=== PATIENT | male | born 1960 | race Caucasian/White ===

== ENCOUNTER → 2020-12-24 07:48 | Outpatient (BNVA) | payer OTHER, SELFPAY | PROVIDERS: PCP Internal Medicine; Visit Provider Physician Assistant ==

== ENCOUNTER 2021-02-14 07:26 | Outpatient (REF) | payer OTHER, SELFPAY | END 2021-02-14 07:27 | disposition home or self-care (01) | LOC: HO.HOSX 07:26 | PROVIDERS: Visit Provider Physician Assistant | DX: Z13.89 Encounter for screening for other disorder (principal) ==

== ENCOUNTER 2021-03-08 14:00 | Outpatient (RCR) | payer OTHER, SELFPAY ==
--- NOTE | 2021-01-18 14:59 | MHC.PT.EP ---
[facility] [place] Office [place] Office [place] Office [address] Araceli Zaidi [address] [phone] F: [phone] F: [phone] F: [phone] F: [phone] Physical Therapy Plan of Care Date of Evaluation: Date of Surgery: NA Diagnosis: BICIPITAL TENDONITIS, OA R SHLDER, OA R AC JT Assessment: Pt IS 60 YO M REFERRED TO PT FROM ORTHO (DANNIE BUTTERFIELD) WITH R SHLDER AC JT ARTHRITIS AND R BICIPITAL TENDONITIS. PRESENTS TO PT WITH C/O PAIN R SHLDER (RELIEF WITH SHLDER ELEV) AND SOME PARESTHESIA AT TIMES R UE. Pt WITH SLIGHT LIMITATION TO END RANGE FLEX IN SUP, GOOD STRENGTH PER MMT R UPPER ARM/SHLDER, SLIGHTLY POSITIVE MODIFIED IMPINGEMENT R. SHOULD BENEFIT FROM PT TO ADDRESS THESE ISSUES. TO BE SEEN 1X/WK X 3-4 WEEKS FOR HOME PROG AND ED RE USE KT AND POSTURE TO SUPPORT R SHLDER. Frequency and Duration: The patient will be seen 1X/WK X 4 WKS Short Term Goals: 1. CENTRALIZE SXS 2. IMPROVED POSTURE AWARENESS Penitentiary Goals: 1. I HEP WITH DC EX PLAN 2. R SHLDER ROM FLEX TO 170 IN SUP 3. DECREASED R SHLDER PAIN AT LEAST 50% WITH ADLS Treatment Plan: Modalities to reduce pain, spasms and effusion. Manual therapy to restore motion and function. Therapeutic exercise to improve strength and flexibility. Neuromuscular re-education for posture and balance. Therapeutic activities to return to functional activities of daily living. Electronically signed by: MORE PEREZ PT Please sign and return to therapist. Thank you for your referral.
--- NOTE | 2021-03-30 14:02 | MHC.PT.DC ---
[facility] [place] Office [place] Office [place] Office [address] Araceli Zaidi [address] [phone] F: [phone] F: [phone] F: [phone] F: [phone] Physical Therapy Discharge Report Diagnosis: BICIPITAL TENDONITIS, OA R SHLDER, OA R AC JT Date of Surgery: NA Date of Evaluation: 01/18/21 Date of Discharge: 03/30/21 Treatments to Date: 5 Cancellations to Date: No Shows to Date: Discharge Status: Independent with HEP Patient Elected to Stop Recommend MD Follow-up Discharge Summary: Pt LAST SEEN IN PT ON 03/08/21 BY CORRIE HUANG PT,DPT. PER THE ASSESSMENT FROM THAT NOTE '03/08/21: Pt has a follow up with [facility] on 03/25/21 at 3:45 pm. Pt's AROM has improved since start of care; he has beem implemented in a gentle stretching program I with'. SUBJECTIVELY AT MELISSA LAST VISIT Pt REPORTS NO SIGNIF CHANGE IN PAIN AND NEED TO RETURN TO MD HAD ORTHO APPT ON 03/25/21 WITH JOSE HUNT PA-C. PER THAT NOTE:'I feel as though there is a component of this that may be related to the cervical spine. Going to order an EMG/nerve conduction study to see where this is originating from. Would also like him to meet with pain management once this study is completed to discuss possible options. He is content with this plan and will see me back p.r.n..' HAS NO FURTHER APPTS SCHEDULED IN PT. WILL DC AT THIS TIME Electronically signed by: MORE PEREZ PT Please sign and return to therapist. Thank you for your referral.
== END 2021-03-30 14:04 | disposition home or self-care (01) ==
LOC: HO.PTWFD 14:00
PROVIDERS: Visit Provider Physician Assistant
DX: M75.21 Bicipital tendinitis, right shoulder (principal); M19.011 Primary osteoarthritis, right shoulder
CPT/HCPCS: 97110; 97140; 97161; 97535

== ENCOUNTER 2021-03-25 07:31 | Outpatient (REF) | payer OTHER, SELFPAY ==
--- NOTE | ~2021-03-25 | XR_ITS ---
EXAMINATION: XR SHOULDER, RIGHT CLINICAL INFORMATION: Right shoulder pain COMPARISON: None TECHNIQUE: Three views of the right shoulder. FINDINGS: Alignment is normal at the acromioclavicular and glenohumeral joints. The acromioclavicular joint is unremarkable. There is a slightly curved, type 2 configuration of the acromion process. No hook-shaped acromion or acromiohumeral distance narrowing. No calcium deposition within rotator cuff tendons. The glenohumeral joint space is preserved. No glenohumeral arthritis, fracture or subluxation. The humeral head is well positioned over the intact glenoid. The visualized right lung is normal. XR/XR shoulder RT min 2V IMPRESSION: Normal radiographs of the right shoulder. No evidence of calcific tendinopathy.
== END 2021-03-25 07:32 | disposition home or self-care (01) ==
LOC: HO.HOSX 07:31
PROVIDERS: Visit Provider Physician Assistant
DX: M25.511 Pain in right shoulder (principal); R20.0 Anesthesia of skin; R20.2 Paresthesia of skin
CPT/HCPCS: 73030

== ENCOUNTER 2021-04-15 10:39 | Outpatient (REF) | payer OTHER, SELFPAY ==
--- NOTE | 2021-04-15 10:45 | EMG_ITS ---
HISTORY OF PRESENT ILLNESS: This is a 60-year-old man with 5-6 month history of significant loss of strength in the right upper extremity. History of hypertension and HIV with negligible counts. MEDICATIONS: He is on HIV medications, olmesartan, and hydrochlorothiazide. PHYSICAL EXAMINATION: On examination, he has significant weakness in the right deltoid, biceps and supra and infraspinatus with normal triceps and distal strength. IMPRESSION: Cervical radiculopathy, C5. Nerve conduction EMG study: Nerve conduction study of the right upper extremity is consistent with mild carpal tunnel syndrome on the right. EMG of the right C5-T1 innervated muscles including cervical paraspinal muscles is consistent with subacute to chronic, moderately severe right C5 radiculopathy and mild chronic right C6 radiculopathy. MD VIJAY Connors/CATIA / [id number]
== END 2021-04-15 10:40 | disposition home or self-care (01) ==
LOC: HO.NEURO 10:39
PROVIDERS: Visit Provider Physician Assistant
DX: R20.0 Anesthesia of skin (principal); R20.2 Paresthesia of skin
CPT/HCPCS: 95886; 95910

== ENCOUNTER → 2021-04-22 10:35 | Outpatient (BNVA) | payer OTHER, SELFPAY | PROVIDERS: PCP Internal Medicine; Visit Provider Internal Medicine ==

== ENCOUNTER → 2021-05-23 11:05 | Outpatient (BNVA) | payer OTHER, SELFPAY | PROVIDERS: PCP Family Medicine; Visit Provider Internal Medicine ==

== ENCOUNTER 2021-06-03 08:00 | Outpatient (RCR) | payer OTHER, SELFPAY | END 2021-11-25 13:32 | disposition home or self-care (01) | LOC: HO.PTWFD 08:00 | PROVIDERS: PCP Family Medicine; Visit Provider Internal Medicine | DX: M54.12 Radiculopathy, cervical region (principal) | CPT/HCPCS: 97012; 97110; 97150; 97161; 97535 ==

== ENCOUNTER → 2021-07-18 12:58 | Outpatient (BNVA) | payer OTHER, SELFPAY | PROVIDERS: PCP Family Medicine; Visit Provider Internal Medicine ==

== ENCOUNTER 2021-07-19 07:18 | Outpatient (REF) | payer OTHER, SELFPAY | END 2021-07-19 07:19 | disposition home or self-care (01) | LOC: HO.MRI 07:18 | PROVIDERS: Visit Provider Internal Medicine | DX: Z13.89 Encounter for screening for other disorder (principal) ==

== ENCOUNTER 2021-10-06 08:39 | Outpatient (REF) | payer OTHER, SELFPAY ==
--- NOTE | 2021-10-06 08:44 | EMG_ITS ---
Left median, ulnar, motor, and sensory studies were performed. Left radial and sensory study was performed. Paraspinal muscles were tested with a needle. IMPRESSION: 1. [id number] left median neuropathy across carpal tunnel. 2. Early left ulnar neuropathy across cubital tunnel. MD ARLEN Mercedes/CATIA / [id number]
== END 2021-10-06 08:40 | disposition home or self-care (01) ==
LOC: HO.NEURO 08:39
PROVIDERS: Visit Provider Internal Medicine
DX: G56.03 Carpal tunnel syndrome, bilateral upper limbs (principal)
CPT/HCPCS: 95886; 95909

== ENCOUNTER 2022-06-21 09:42 | Outpatient (REF) | payer OTHER, SELFPAY | END 2022-06-21 09:43 | disposition home or self-care (01) | LOC: HO.HOSX 09:42 | PROVIDERS: Visit Provider Orthopaedic Surgery | DX: Z13.89 Encounter for screening for other disorder (principal) ==

== ENCOUNTER 2022-06-22 12:54 | Outpatient (REF) | payer OTHER, SELFPAY ==
--- NOTE | ~2022-06-22 | XR_ITS ---
EXAMINATION: XR KNEE, LEFT XR KNEE AP STANDING CLINICAL INFORMATION: Pain. COMPARISON: Radiographs dated 01/28/2018. TECHNIQUE: Lateral and axial views of the left knee were obtained. AP bilateral standing view of the knees was obtained. FINDINGS: Bony alignment and mineralization are normal. The lateral and medial joint space compartments of the bilateral knees are well-maintained. There is minimal peripheral osteophyte formation of the bilateral medial joint space compartments. No fracture or dislocation is seen. There is no varus or valgus configuration. There is a small to moderate left knee effusion. A 9 mm loose body is suspected within the left suprapatellar space. No foreign body is seen. XR/XR knee LT 2V IMPRESSION: 1. There is minimal osteoarthritic change of the medial joint space compartments of the bilateral knees. No significant varus or valgus configuration is seen bilaterally. 2. A small to moderate left knee joint effusion is seen. 3. A 9 mm loose body is suspected within the left suprapatellar space.
--- NOTE | ~2022-06-22 | XR_ITS ---
EXAMINATION: XR KNEE, LEFT XR KNEE AP STANDING CLINICAL INFORMATION: Pain. COMPARISON: Radiographs dated 01/28/2018. TECHNIQUE: Lateral and axial views of the left knee were obtained. AP bilateral standing view of the knees was obtained. FINDINGS: Bony alignment and mineralization are normal. The lateral and medial joint space compartments of the bilateral knees are well-maintained. There is minimal peripheral osteophyte formation of the bilateral medial joint space compartments. No fracture or dislocation is seen. There is no varus or valgus configuration. There is a small to moderate left knee effusion. A 9 mm loose body is suspected within the left suprapatellar space. No foreign body is seen. XR/XR knee standing BI IMPRESSION: 1. There is minimal osteoarthritic change of the medial joint space compartments of the bilateral knees. No significant varus or valgus configuration is seen bilaterally. 2. A small to moderate left knee joint effusion is seen. 3. A 9 mm loose body is suspected within the left suprapatellar space.
== END 2022-06-22 12:55 | disposition home or self-care (01) ==
LOC: HO.HOSX 12:54
PROVIDERS: Visit Provider Orthopaedic Surgery
DX: M23.92 Unspecified internal derangement of left knee (principal)
CPT/HCPCS: 73560; 73565

== ENCOUNTER 2022-07-20 18:41 | Outpatient (REF) | payer OTHER, SELFPAY ==
--- NOTE | ~2022-07-20 | MR_ITS ---
EXAMINATION: MR KNEE WITHOUT CONTRAST, LEFT CLINICAL INFORMATION: Left knee pain. COMPARISON: Radiographs 06/22/2022 TECHNIQUE: MRI of the knee without contrast was performed using routine sequences on a high-field scanner. FINDINGS: MENISCI: Medial Meniscus: Complex tearing of the posterior horn with irregular tearing along the superior articular surface at and adjacent to the meniscal root, extending along the inner margin of the posterior horn with an oblique undersurface tear at the junction with the meniscal body. A portion of the meniscal undersurface is displaced into the meniscotibial recess. Lateral Meniscus: Ill-defined inner margin and horizontal tearing throughout the posterior horn, body, and anterior horn. LIGAMENTS: Cruciate: Mucoid degeneration/interstitial partial tear of the distal PCL. The ACL is intact. Reactive marrow changes at the tibial insertions. Collateral: Intact EXTENSOR MECHANISM: Intact ARTICULAR CARTILAGE/BONE: Patellofemoral Compartment: Partial-thickness cartilage loss and surface irregularity of the central trochlea. Medial Compartment: Peripheral cartilage thinning and small marginal osteophytes. Lateral Compartment: Cartilage thinning and surface irregularity of the tibia posteriorly. JOINT FLUID AND BURSAE: Small joint effusion with mild synovitis. There is a 10 mm ossified body in the posterolateral aspect of the joint adjacent to the popliteus tendon. MR/MR knee LT wo con IMPRESSION: 1. Complex tearing of the posterior horn of the medial meniscus as described. 2. Ill-defined inner margin and horizontal tearing of the lateral meniscus as described. 3. Mucoid degeneration/interstitial partial tear of the distal PCL. 4. Mild tricompartmental osteoarthritis with joint effusion and loose body posterolaterally.
== END 2022-07-20 18:42 | disposition home or self-care (01) ==
LOC: HO.MRI 18:41
PROVIDERS: PCP Internal Medicine; Visit Provider Orthopaedic Surgery
DX: M23.92 Unspecified internal derangement of left knee (principal)
CPT/HCPCS: 73721

== ENCOUNTER → 2022-08-03 09:15 | Outpatient (BNVA) | payer OTHER, SELFPAY | PROVIDERS: PCP Internal Medicine; Visit Provider Orthopaedic Surgery | DX: Z13.89 Encounter for screening for other disorder (principal) ==

== ENCOUNTER → 2022-09-04 07:58 | Outpatient (BNVA) | payer OTHER, SELFPAY | PROVIDERS: PCP Internal Medicine; Visit Provider Physician Assistant | DX: Z13.89 Encounter for screening for other disorder (principal) ==

== ENCOUNTER 2022-09-13 06:02 | Day surgery (SDC) | payer OTHER, SELFPAY ==
[2022-09-08 12:41] VITALS: BMI 44.3
--- NOTE | 2022-09-12 10:41 | P.CONAN_ITS ---
Documented by User: Tova Kaminski NP 09/12/22 13:37 HPI - Anesthesia Eval Consult details Narrative: 62yo M for Left Knee Arthroscopy Medically cleared PMFSH Active Problems Active Problems: All Active Problems (Updated 09/08/22 @ 12:31 by Janay Rayo RN) Biceps tendonitis on right (Acute) Osteoarthritis of right acromioclavicular joint (Acute) Cervical radiculopathy (Acute) Carpal tunnel syndrome, bilateral (Acute) Tear of meniscus of left knee (Acute) Knee locking (Acute) Past Medical History Medical History (Updated 09/08/22 @ 12:31 by Janay Rayo RN) Bursitis of right shoulder GERD (gastroesophageal reflux disease) HIV positive, asymptomatic HTN (hypertension) Knee locking Rupture of left triceps tendon Tear of meniscus of left knee Family History Family History Mother No problems noted. Father No problems noted. 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 Meds Allergies Allergy/AdvReac Type Severity Reaction Status Date / Time levofloxacin [From LEVAQUIN] Allergy Unknown HIVES Verified 09/13/22 06:10 polio vaccine Allergy Severe polio Uncoded 09/13/22 06:10 Home Medications Medication Instructions Recorded Confirmed Last Taken Type hydrochlorothiazide 12.5 mg capsule 12.5 mg PO DAILY 12/24/20 09/08/22 09/12/22 History omeprazole 10 mg capsule,delayed 10 mg PO DAILY 12/24/20 09/13/22 09/13/22 04:30 History release darunavir 800 mg-cobicistat 150 mg 1 tab PO DAILY 04/22/21 09/08/22 Unknown History tablet (Prezcobix) emtricitabine 200 mg-tenofovir 1 tab PO DAILY 04/22/21 09/08/22 Unknown History disoproxil fumarate 300 mg tablet olmesartan 20 mg tablet 20 mg PO DAILY 04/22/21 09/08/22 09/12/22 History loratadine 10 mg tablet (Allergy 10 mg PO DAILY 07/18/21 09/08/22 Unknown History Relief (loratadine)) Exam Exam Date and Time: September 12, 2022 1041 Height,Weight and Vital Signs: Height 5 ft 11 in Weight 144.242 kg Pertinent Lab Results Pertinent Lab Results: CBC, BMP, PT/INR, HCV 08/2022 WNL (at outside facility) Narrative Narrative: EKG 08/2022 (at PCP) SR @ 57 First degree AV block Assessment and Plan Assessment Anesthesia Assessment: Chart Reviewed Documented by User: Thomas Becker MD 09/14/22 16:52 [facility] Past Medical History Medical History (Updated 09/08/22 @ 12:31 by Janay Rayo RN) Bursitis of right shoulder GERD (gastroesophageal reflux disease) HIV positive, asymptomatic HTN (hypertension) Knee locking Rupture of left triceps tendon Tear of meniscus of left knee Functional capacity: independent ambulation Family History Family History Mother No problems noted. Father No problems noted. 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 Meds Allergies Allergy/AdvReac Type Severity Reaction Status Date / Time levofloxacin [From LEVAQUIN] Allergy Unknown HIVES Verified 09/13/22 06:10 polio vaccine Allergy Severe polio Uncoded 09/13/22 06:10 Home Medications Medication Instructions Recorded Confirmed Last Taken Type hydrochlorothiazide 12.5 mg capsule 12.5 mg PO DAILY 12/24/20 09/08/22 09/12/22 History omeprazole 10 mg capsule,delayed 10 mg PO DAILY 12/24/20 09/13/22 09/13/22 04:30 History release darunavir 800 mg-cobicistat 150 mg 1 tab PO DAILY 04/22/21 09/08/22 Unknown History tablet (Prezcobix) emtricitabine 200 mg-tenofovir 1 tab PO DAILY 04/22/21 09/08/22 Unknown History disoproxil fumarate 300 mg tablet olmesartan 20 mg tablet 20 mg PO DAILY 04/22/21 09/08/22 09/12/22 History loratadine 10 mg tablet (Allergy 10 mg PO DAILY 07/18/21 09/08/22 Unknown History Relief (loratadine)) Exam Airway Mallampati Class: IV Denture: Upper Partial: Lower Loose/Missing/Broken Teeth: Yes Assessment and Plan Assessment Anesthesia Assessment: Anesthesia Plan Discussed Final Anesthetic Review Family History of Problems with Anesthesia: No History of Problems with Anesthesia: No NPO: Yes ASA Class: III Final Preanesthetic Review: Meds/Allgs Chart Reviewed, Consent Obtained/Reviewed and Anes Risks/Benef Reviewed Patient Risk: Intermediate Procedure Risk: Intermediate Anesthetic Plan Anesthetic Plan: GA and Agree w/ Assess. and Plan Disposition: Standard PACU
[2022-09-13] VITALS (7 sets, daily range): BP systolic 130–153; BP diastolic 62–91; PULSE 78–94; RESP 16–20; TEMP 36.2–36.6; O2SAT 96–97; BMI 44.5
[2022-09-13] MEDS: Lactated Ringers 1,000 ML 100 ML IVCONT (06:34)
--- NOTE | 2022-09-13 08:30 | PM.OP ---
Brief Operative Note Date of Service: 09/13/22 Pre-op diagnosis: Left knee medial meniscus tear Post-op diagnosis: other (1)left knee MMT 2) left knee LMT 3) medial plica 4) arthritis) Procedure: Partial LM, Partial MM, plica resection, chondroplasty Surgeon: Jani David MD Anesthesia: GETA and local Was an Projection Welding Machine Operator used for this Procedure?: No Estimated blood loss (mL): 2 Tourniquet time (min): 30 IV fluids (mL): 500 Pathology: none sent Condition: stable Disposition: PACU
--- NOTE | 2022-09-21 13:51 | W.PM.OPN ---
Operative Note Operative Note Date of Service: 09/13/22 Narrative: Date of Service: 09/13/22 Pre-op diagnosis: Left knee medial meniscus tear Post-op diagnosis: other (1)left knee MMT 2) left knee LMT 3) medial plica 4) arthritis) Procedure: Partial LM, Partial MM, plica resection, chondroplasty Surgeon: Jani David MD Anesthesia: GETA and local Was an Computer System Validation Specialist used for this Procedure?: No Estimated blood loss (mL): 2 Tourniquet time (min): 30 IV fluids (mL): 500 Pathology: none sent Condition: stable Disposition: PACU Procedure in detail: Patient was brought to the operating room placed supine on the arthroscopic table and prepped and draped in standard sterile fashion. A time-out was called to identify proper site proper procedure proper surgeon and IV antibiotics per weight were administered. I began by exsanguinating the limb and insufflating tourniquet to 300 mm Hg. Then made a standard anterolateral stab incision. knee was insufflated with water and 30 degree arthroscope was placed. There was grade 2 fibrillations of the patella and there were grade 2/3 fibrillations of the trochlea. There was a large medial plica which made descend alvarez into the medial compartment difficult. I descended into the medial compartment where I made my medial portal under direct visualization. There was obvious of complex tear of the body and posterior horn of the medial meniscus. The root was intact and there was grade2 changes with some scattered grade 3 changes throughout the medial compartment. I used a combination of biter shaver and cautery to remove unstable portions of the meniscus. Approximately 40% meniscal volume was removed. Once I was satisfied with this the ACL was examined and found to be intact and the lateral compartment was examined. There was a large unstable flap of lateral meniscus that was debrided with a combination of biter and shaver. Approximately 30% of the meniscal volume was removed. The root was intact. There were grade 1/2 changes of the lateral tibial plateau. I then returned to the anteromedial compartment where I resected the medial plica with a combination of shaver and cautery. I then took my final pictures and removed all instrumentation and closed the portals with skin glue. 25 mL of 2% Marcaine with epinephrine was injected into the joint and the surrounding soft tissues. Patient was then placed in sterile dressing extubated brought recovery room stable condition. There were no known complications.
== END 2022-09-13 10:00 | disposition home or self-care (01) ==
PROVIDERS: PCP Internal Medicine; Visit Provider Orthopaedic Surgery
PROC: (CPT 29870; principal; 2022-09-13 07:30)
DX: S83.232A Complex tear of medial meniscus, current injury, left knee, initial encounter (principal); S83.282A Other tear of lateral meniscus, current injury, left knee, initial encounter; M67.52 Plica syndrome, left knee; M17.12 Unilateral primary osteoarthritis, left knee; I10 Essential (primary) hypertension; Z21 Asymptomatic human immunodeficiency virus [HIV] infection status; Z79.899 Other long term (current) drug therapy; X58.XXXA Exposure to other specified factors, initial encounter; Y93.9 Activity, unspecified; Y92.9 Unspecified place or not applicable; Y99.9 Unspecified external cause status
CPT/HCPCS: 29880; J0171; J0690; J1100; J1170; J2250; J2405; J2795; J3010

== ENCOUNTER → 2022-09-18 08:37 | Outpatient (BNVA) | payer OTHER, SELFPAY | PROVIDERS: PCP Internal Medicine; Visit Provider Physician Assistant ==

== ENCOUNTER 2022-10-16 09:00 | Outpatient (RCR) | payer OTHER, SELFPAY ==
--- NOTE | 2022-09-18 16:05 | MHC.PT.EP ---
[facility] [place] Office [place] Office [place] Office [address] Araceli Zaidi [address] [phone] F: [phone] F: [phone] F: [phone] F: [phone] Physical Therapy Plan of Care Date of Evaluation: Date of Surgery: 09/13/22 Diagnosis: s/p LEFT knee partial lateral and medial meniscectomy, plica resection, and chondroplasty. Assessment: Patient is a 62 y.o. male who is referred to PT by Dr. Jani David MD with Dx of s/p LEFT partial meniscectomy due to meniscal tear. Patient impairments include pain, swelling, limited ROM, weakness, antalgic gait. Patient current functional limitations are bending, stair use, walking unlevel surfaces, high step into work truck. Patient will benefit from skilled PT to address aforementioned impairments and functional limitations to meet established goals. Frequency and Duration: The patient will be seen 2x/week for 6 weeks Short Term Goals: 3 weeks Patient demonstrates consistency and independence with HEP to self manage symptoms. Patient presents with reduced swelling in L knee 45cm to be able to perform more AROM exercises. Mcfp Goals: 6 weeks Patient presents with increased L knee flexion 120 degrees to be able to bend to low surfaces. Patient presents with increased L knee extension 0 degrees to be able to ambulate without AD. Patient presents with increased L knee quad stretch 4+/5 to be able to get on/off work truck. Treatment Plan: Modalities to reduce pain, spasms and effusion. Manual therapy to restore motion and function. Therapeutic exercise to improve strength and flexibility. Neuromuscular re-education for posture and balance. Therapeutic activities to return to functional activities of daily living. Electronically signed by: Sania Baer, PT, DPT Please sign and return to therapist. Thank you for your referral.
--- NOTE | 2022-11-22 14:47 | MHC.PT.DC ---
[facility] [place] Office [place] Office [place] Office [address] Araceli Zaidi 140 [facility] [phone] F: [phone] F: [phone] F: [phone] F: [phone] Physical Therapy Discharge Report Diagnosis: s/p LEFT knee partial lateral and medial meniscectomy, plica resection, and chondroplasty. Date of Surgery: 09/13/22 Date of Evaluation: 09/18/22 Date of Discharge: 11/22/22 Treatments to Date: 7 Cancellations to Date: No Shows to Date: 1 Discharge Status: Improved Function Independent with HEP Visit Non-compliance Discharge Summary: Patient ceased attending PT on his own accord on 10/16/22. He did well during his attendance of PT sessions, improving strength and ROM. He has a HEP. He is therefore discharged from PT. Electronically signed by: Sania Baer, PT, DPT Please sign and return to therapist. Thank you for your referral.
== END 2022-11-22 14:48 | disposition home or self-care (01) ==
LOC: HO.PT 09:00
PROVIDERS: PCP Internal Medicine; Visit Provider Orthopaedic Surgery
DX: S83.207A Unspecified tear of unspecified meniscus, current injury, left knee, initial encounter (principal)
CPT/HCPCS: 97110; 97161; 97530

== ENCOUNTER → 2022-10-19 13:28 | Outpatient (BNVA) | payer OTHER, SELFPAY | PROVIDERS: PCP Internal Medicine; Visit Provider Physician Assistant ==